=== PATIENT | male | born 1980 | race Caucasian/White ===

== ENCOUNTER 2019-07-02 09:35 | Outpatient (CLI) | payer BC, MEDICAID ==
[~2019-07-02 09:35] MED LIST: ACET325T14 PO; HYDR-3240 PO; NAPR-856 PO; OXYC20TA42 PO; TRAM50TA2 PO; WARF10TA43 PO-COUM
== END 2019-07-02 23:59 | disposition home or self-care (01) ==
LOC: RAD 09:35
PROVIDERS: ATTEND Internal Medicine
DX: R60.0 Localized edema (principal)